=== PATIENT | male | born 1985 | race Caucasian/White ===

== ENCOUNTER 2018-11-13 08:30 | Emergency (ER) | payer OTHER ==
[~2018-11-13] VITALS: Ht 175.3 cm; Wt 90.3 kg
[2018-11-13 08:48] VITALS: Ht 175.3 cm; Wt 90.3 kg
[2018-11-13 10:13] VITALS: BP 128/95
== END 2018-11-13 10:13 | disposition home or self-care (01) ==
LOC: ED 08:30
DX: I10 Essential (primary) hypertension (principal)

== ENCOUNTER 2019-06-28 19:33 | Emergency (ER) | payer OTHER, SELFPAY ==
[~2019-06-28] VITALS: Ht 172.7 cm; Wt 95.3 kg
[2019-06-28 19:34] VITALS: Ht 172.7 cm; Wt 95.3 kg
[2019-06-28 21:40] LABS: PLATELET COUNT 159 x10^3mcL (130-400); RED CELL DISTRIBUTION WIDTH 13.8 % (11.5-14.5)
[2019-06-28 21:52] LABS: CALCIUM 9.3 mg/dL (8.5-10.1); CARBON DIOXIDE 27.2 mmol/L (21-32); CHLORIDE SERUM 105 mmol/L (98-107); CREATININE SERUM 1.2 mg/dL (0.7-1.3); GFR1 > 60 mL/min; GLUCOSE SERUM 93 mg/dL (74-106); POTASSIUM SERUM 4.4 mmol/L (3.5-5.1); SODIUM SERUM 141 mmol/L (136-145)
[2019-06-28 21:56] LABS: ALBUMIN 3.8 g/dL (3.4-5.0); ALKALINE PHOSPHATASE 82 U/L (46-116); ALT/SGPT 41 U/L (16-63); AST/SGOT 34 U/L (15-37); BILIRUBIN TOTAL 0.4 mg/dL (0.20-1.00); C REACTIVE PROTEIN 6.4 mg/dL (<=0.9); TOTAL PROTEIN, SERUM 8.1 g/dL (6.4-8.2)
[2019-06-28 22:50] VITALS: BP 160/98
== END 2019-06-28 22:50 | disposition home or self-care (01) ==
LOC: ED 19:33
PROVIDERS: Specialist
DX: J20.9 Acute bronchitis, unspecified (principal); I10 Essential (primary) hypertension
CPT/HCPCS: 36415; 87804; Q0092